=== PATIENT | female | born 1990 | race Caucasian/White ===

== ENCOUNTER 2017-11-14 20:36 | Emergency (ER) | payer OTHER ==
[~2017-11-14] VITALS: Ht 157.5 cm; Wt 56.2 kg
--- NOTE | 2017-11-14 21:10 | NUR ---
[facility] FAMILY; "CHEST PAIN, ON AND OFF ALL DAY WITH LEFT ARM PAIN". DENIES SOB, DIZZINESS, N/V, JAW PAIN @ THIS TIME. PLACED ON MONITOR, NSR W/ NO ECTOPY NOTED @ THIS TIME.
[2017-11-14 21:44] LABS: BASOPHILS % (AUTO) 0.7 % (0.0-2.0); EOSINOPHILS % (AUTO) 1.6 % (0.0-6.0); HEMATOCRIT 37 % (33-45); HEMOGLOBIN 12.9 g/dL (11.5-14.8); LYMPHOCYTES # (AUTO) 2.9 /CMM (0.8-4.8); LYMPHOCYTES % (AUTO) 43.9 % (20.0-44.0); MEAN CORPUSCULAR HEMOGLOBIN 32 PG (26.0-33.0); MEAN CORPUSCULAR HGB CONC 35 g/dl (31.0-36.0); MEAN CORPUSCULAR VOLUME 91 fL (82-100); MONOCYTES # (AUTO) 0.5 /CMM (0.1-1.30); MONOCYTES % (AUTO) 7.3 % (2.0-12.0); NEUTROPHILS # (AUTO) 3.2 /CMM (1.8-8.9); NEUTROPHILS % (AUTO) 46.5 % (43.0-81.0); PLATELET COUNT (AUTO) 206 /CMM (150-450); RDW COEFFICIENT OF VARIATION 12.1 (11.5-15.0); RED BLOOD CELL COUNT(AUTO) 4.08 MIL/uL (4.0-5.2); WHITE BLOOD COUNT (AUTO) 6.7 K/uL (4.3-11.0)
[2017-11-14 21:54] LABS: CALCIUM, SERUM 8.8 mg/dL (8.5-10.1); CARBON DIOXIDE 28 mmol/L (21-32); CHLORIDE 103 mmol/L (98-107); CREATININE 0.9 mg/dL (0.6-1.3); GLUCOSE 106 mg/dL (74-106); POTASSIUM 3.8 mmol/L (3.5-5.1); SODIUM SERUM 136 mmol/L (136-145); UREA NITROGEN, BLOOD 10 mg/dL (7-18)
[2017-11-14 22:00] LABS: ALANINE AMINOTRANSFERASE 16 U/L (12-78); ALBUMIN 3.6 g/dL (3.4-5.0); ALKALINE PHOSPHATASE 56 U/L (46-116); ASPARTATE AMINOTRANSFERASE 14 U/L (15-37); BILIRUBIN,DIRECT 0.2 mg/dL (0.0-0.2); BILIRUBIN,TOTAL 1.2 mg/dL (0.2-1.0); TOTAL PROTEIN, SERUM 6.9 g/dL (6.4-8.2)
[2017-11-14 22:02] LABS: TROPONIN I < 0.017 ng/mL (0.00-0.056)
[2017-11-14 23:35] VITALS: BP 147/83
== END 2017-11-14 23:35 | disposition home or self-care (01) ==
LOC: ER 20:43
DX: R07.89 Other chest pain (principal); Z86.718 Personal history of other venous thrombosis and embolism; Z86.711 Personal history of pulmonary embolism
CPT/HCPCS: 36415; 71045; 80048; 80076; 84484; 85025; 85730; 93005; 99285; A4606; Z7610